=== PATIENT | female | born 1990 | race Caucasian/White ===

== ENCOUNTER 2016-08-09 18:07 | Emergency (ER) | payer OTHER ==
--- NOTE | 2016-08-09 23:36 | ED CLINICAL REPORT ---
Clinical Report - Physicians/Mid Levels [facility] [address] [place] [address] 08/09/2016 18:08 Patient: JENI BENITEZ Time Seen: 19:03; initial patient contact, initial documentation, patient care assumed. Arrived- By private vehicle. Historian- patient. HISTORY OF PRESENT ILLNESS Chief Complaint: PELVIC PAIN and VAGINAL BLEEDING. This started about 3 days ago and still present. The symptoms are described as moderate. Modifying factors. Not worsened by anything. Not relieved by anything. The patient has had mild, crampy abdominal pain and pelvic pain. She has had abnormal bleeding described as spotting blood seen on tp when wiping with urination. No low back pain, flank pain, vaginal discharge, pain with urination or urinary frequency. No urgency of urination or hematuria. Sexually active- unprotected sex and heterosexual. No exposure to sexually transmitted disease. Currently . In 1st trimester. confirmed with urine test. Has had care by private doctor. G 3. P 2. Similar symptoms previously: Frequently, as bad. Recent medical care: The patient was seen recently by a health care provider. ( txed recently for uti, ?abx, no s/s, no f/u). REVIEW OF SYSTEMS The patient has had nausea. She has had mild vomiting (x3 today). The vomiting has occurred several times. No bilious emesis, feculent emesis, blood-tinged emesis, coffee-grounds emesis or frankly bloody emesis. No unusually dark emesis. No diarrhea, black stools or fever. All systems otherwise negative, except as recorded above. PAST HISTORY See nurses notes. ( PROBLEMS: UTI - Urinary Tract Infection. Sick Contact. Ectopic . Abdominal Pain. Vomiting. Gastroesophageal Reflux Disease. Lumbar Strain. Costochondritis. Asthma. Pelvic Pain. Cystitis. Depression. Anxiety Reaction. Scoliosis. --18:37 Petar Valderrama, R.N. ADDITIONAL SURGERIES: Dilatation & Curettage. L fallopian tube removed. Tonsillectomy. --18:37 Petar Valderrama, R.N.). SOCIAL HISTORY Never smoker. No alcohol use or drug use. No recent travel. Is a local resident. FAMILY HISTORY Negative. ADDITIONAL NOTES The nursing notes have been reviewed with agreement regarding the chief complaint, HPI, ROS, PMH and patient medications and allergies. PHYSICAL EXAM Vital Signs: 08/09/2016 18:29 BP: 117/66. HR: 95. RR: 16. O2 saturation: 98%. Temp: 99.8 F. Pain level now: 8/10. Have been reviewed as normal and appear to be correct. Appearance: Alert. Oriented X3. No acute distress. HEENT: Normal external inspection. ENT: Pharynx normal. Neck: Neck supple. CVS: Heart sounds normal. Respiratory: No respiratory distress. Breath sounds normal. Chest nontender. Abdomen: Soft and nontender. Bowel sounds normal. No organomegaly. No mass. Back: Normal external inspection. : External inspection normal. Speculum exam abnormal. A moderate amount of thick and yellow vaginal discharge present. No vaginal bleeding. Cervical os closed. No tissue present. No cervicitis. No herpes-like lesions. Bimanual exam normal. Skin: Skin warm and dry. Normal skin color. No rash. Normal skin turgor. Extremities: Extremities nontender. No lower extremity edema. Neuro: Oriented X 3. Mood/affect normal. No motor deficit. No sensory deficit. LABS, X-RAYS, AND EKG Pelvic Sonogram: An intrauterine is present. No acute disease. no ectopic verbal report by [employer] Interpretation time: 2320. Laboratory Tests: UA-Culture if indicated: (TRANG: 08/09/2016 18:45) ( MsgRcvd 08/09/2016 19:21) Final results Test Result Flag Units (Reference) URINE COLOR YELLOW URINE APPEARANCE CLEAR URINE GLUCOSE NEGATIVE (NEGATIVE) URINE BILIRUBIN NEGATIVE (NEGATIVE) URINE KETONE NEGATIVE (NEGATIVE) URINE SPECIFIC GRAVITY <= 1.005 L (1.010-1.030) URINE PH 6.0 (5.0-8.0) URINE PROTEIN NEGATIVE (NEGATIVE) URINE UROBILINOGEN 0.2 EU/dL (0.2-1.0) URINE NITRITE NEGATIVE (NEGATIVE) URINE BLOOD NEGATIVE (NEGATIVE) URINE LEUK ESTERASE NEGATIVE (NEGATIVE) URINE RBC NONE SEEN rbc/hpf (0-1) URINE WBC 0-1 wbc/hpf (0-1) URINE EPITHELIAL CELLS NONE SEEN EPI/hpf (0-5) URINE BACTERIA NONE SEEN (NONE SEEN) URINE COMMENT CULT NOT INDICATED URINE CULTURES ARE SET-UP BASED ON THE FOLLOWING CRITERIA:POSITIVE NITRITEPOSITIVE LEUKOCYTE ESTERASEGREATER THAN 10 WHITE BLOOD CELLSMODERATE (2+) OR GREATER BACTERIA Urine: (TRANG: 08/09/2016 18:45) ( MsgRcvd 08/09/2016 19:16) Final results Test Result Flag Units (Reference) URINE POSITIVE CBC w Diff: (TRANG: 08/09/2016 20:15) ( MsgRcvd 08/09/2016 20:28) Final results Test Result Flag Units (Reference) WHITE BLOOD COUNT 9.0 K/uL (4.5-11.5) RED BLOOD COUNT 4.77 M/uL (4.00-5.20) HEMOGLOBIN 13.3 gm/dL (12.0-16.0) HEMATOCRIT 41.1 % (36.0-46.0) MEAN CELL VOLUME 86 fL (80-100) MEAN CORPUSCULAR HGB 28 pg (26-34) MEAN CORPUSCULAR HGB CONC 32 g/dL (31-37) RED CELL DISTRIBUTION WIDTH 14.0 % (11.6-14.8) PLATELET COUNT 299 K/uL (150-400) NEUTROPHIL % 63.2 % (50-75) LYMPH % 29.2 % (25-40) MONO % 6.2 % (3-14) EOSINOPHIL % 1.1 % (0-4) BASOPHIL % 0.3 % (0-2) BMP: (TRANG: 08/09/2016 20:15) ( MsgRcvd 08/09/2016 22:05) IP Test Result Flag Units (Reference) GLUCOSE 88 mg/dL (70-110) BUN 10 mg/dL (7-18) CREATININE 0.9 mg/dL (0.6-1.3) Estimated GFR >60 mL/min Estimated GFR- >60 mL/min Note: Persistent reduction over 3 months in eGFR<60 mL/min/1.73 m2 defines CKD. Patients with eGFR values>=60 mL/min/1.73 m2 may also have CKD if evidence ofpersistent proteinuria. Additional information may be foundat www.kidney.org. SODIUM 139 mmol/L (136-145) POTASSIUM 3.5 mmol/L (3.5-5.1) CHLORIDE 106 mmol/L (98-107) CARBON DIOXIDE 24 mmol/L (21-32) CALCIUM 8.9 mg/dL (8.5-10.1) Wet Prep: (TRANG: 08/09/2016 21:07) ( [facility] 08/09/2016 21:31) Final results SPECIMEN DESCRIPTION: CERVIX Test Result Flag Units (Reference) WET MOUNT CLUE CELLS:: RARE * EPITHELIAL CELLS: MODERATE -- SOURCE?: CERVIX WHITE BLOOD CELLS: MANY TRICHOMONAS:: NONE -- YEAST:: NONE Type & Rh: (TRANG: 08/09/2016 20:15) ( [facility] 08/09/2016 21:15) Final results Test Result Flag Units (Reference) PATIENT BLOOD TYPE O Positive . PROGRESS AND PROCEDURES Course of Care: 21:26 08/09/16. pt has familia for frequent er visits, #21, and recommends educating pt about proper utilization of er Teaching was done for this, and spoke to pt about her er visits pt did not tell me of er vists, and pt was at [facility] on 08/05 and 08/03, pt denies that they did any us, said they only did blood work [facility] called to obtain us report, us done on 08/03 but could not r/o ectopic due to early . Patient counseled in person regarding the patient's stable condition, test results and diagnosis. 23:36. Differential Diagnosis: I considered acute appendicitis, mesenteric lymphadenitis, urinary tract infection, ovarian cyst, ovarian torsion, ectopic , pelvic abscess and viral syndrome as a possible cause of abdominal pain in this patient. This is a partial list of diagnoses considered. Above considerations are based on history, physical exam, laboratory data and other information. Differential diagnosis was discussed with patient. Disposition: Discharged home in good and unchanged condition (23:36). Condition: good and stable. CLINICAL IMPRESSION Acute mild bacterial vaginitis INSTRUCTIONS Warnings: GENERAL WARNINGS: Return or contact your physician immediately if your condition worsens or changes unexpectedly, if not improving as expected, or if other problems arise. Specifically return if problem worsens. Prescription Medications: Flagyl 500 mg: Take 1 tablet orally every 12 hours for 7 days. No refill. Substitution is permissible. Follow-up: Follow up with your doctor in about three days even if well. Call for an appointment. Summary of care provided to patient. Understanding of the discharge instructions verbalized by patient. (Electronically signed by Mili Ward A.R.N.P. 08/10/2016 0:12)
--- NOTE | 2016-08-09 23:36 | ED NURSING NOTES ---
Clinical Report - Nurses [facility] [place] [address] 08/09/2016 18:08 [id number] Triage time 18:29 Aug 09 2016. Acuity: LEVEL 3. Chief Complaint: ABDOMINAL PAIN and CRAMPS and SPOTTING. Alert. MARILEE COMA SCORE: Marilee Coma Scale: 15- eyes open spontaneously (4); best verbal response- oriented x 4 (5); best motor response- obeys commands (6). --18:41 Petar Valderrama R.N. 18:29 08/09/16. BP: 117/66. HR: 95. RR: 16. O2 saturation: 98% on room air. Temp: 99.8 F (oral). Pain level now: 03/12. --18:41 Petar Valderrama R.N. Weight: 55.3 kg stated. Height/Length: 63 inches Per Patient. BMI: 21.6. --18:33 Petar Valderrama R.N. Medications Tylenol Oral, as needed. --18:33 Petar Valderrama R.N. Zofran Oral, as needed. --18:33 Petar Valderrama R.N. Vitamins Oral 1 pill, daily. --18:33 Petar Valderrama R.N. Allergies None. --18:33 Petar Valderrama R.N. History Arrived by private vehicle. Historian: patient. Accompanied by family. 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 ( Vaginal "spotting." Pt states that she is 5-6 weeks (confirmed by her milk condenser in [place]).). Onset. (cramping for the last 2 days, spotting today ~ 3 hours ago.). She has had vomiting (3 x today). Last oral intake by patient was (about 4 hours ago, but vomited). 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 Took Tylenol. Symptoms did not improve after treatment. PAST MEDICAL HX: Immunizations: status is unknown and seasonal influenza: first dose. Last normal menstrual period- Jul 03, 2016. She has had care by an surface boss. No known risks or problems associated with current . OB history: G 3; P 2. SOCIAL HX: Never smoker. No alcohol use or drug use. No infectious disease exposure. ABUSE ASSESSMENT: No report of abuse. FALL RISK ASSESSMENT: Fall risk assessment completed. No fall risk identified. NUTRITIONAL RISK ASSESSMENT: The nutritional risk assessment revealed no deficiencies. FUNCTIONAL ASSESSMENT: Functional assessment: no impairments noted. LEARNING NEEDS ASSESSMENT: The learning needs assessment revealed no barriers. SKIN INTEGRITY ASSESSMENT: Skin integrity risk assessment completed. No skin integrity risk identified. --18:41 Petar Valderrama R.N. PROBLEMS: UTI - Urinary Tract Infection. Sick Contact. Ectopic . Abdominal Pain. Vomiting. Gastroesophageal Reflux Disease. Lumbar Strain. Costochondritis. Asthma. Pelvic Pain. Cystitis. Depression. Anxiety Reaction. Scoliosis. --18:37 Petar Valderrama R.N. ADDITIONAL SURGERIES: Dilatation & Curettage. L fallopian tube removed. Tonsillectomy. --18:37 Petar Valderrama R.N. Interventions ID band on patient. To treatment room. --18:41 Petar Valderrama R.N. PHYSICAL ASSESSMENT Ambulatory to room. GENERAL / NEURO / PSYCH: Alert. Oriented X 4. Appears in pain. HEENT: Mucous membranes are pink. RESPIRATORY: Respirations not labored. CVS: Normal heart rate and rhythm. GI / : Abdominal tenderness in the suprapubic area and lower abdomen. EXTREMITIES: No lower extremity edema. SKIN: Skin is warm and dry. --18:42 Petar Valderrama R.N. NURSING PROGRESS NOTES Patient gowned. Reassurance given. Patient identifiers checked. Call light placed in reach. Side rails up x 1. Bed placed in lowest position. Brakes of bed on. Patient ready for evaluation- chart flagged and ED physician notified. --18:42 Petar Valderrama R.N. 20:47 08/09/16. PELVIC EXAM: Pelvic exam performed by ED physician. Assisted by one nurse. Preparation: pelvic tray; patient placed in lithotomy position. Procedure: speculum and bimanual exam. Specimens collected and sent to lab: GC, chlamydia, wet prep and DNA probe. Status post-procedure: she was stable. Total time of assist / procedure: 15 minutes. --21:05 Carlos, Jacquie, R.N. 21:38 08/09/16. ( Pt resting quietly, family at bedside, waiting for US). --21:38 Jacquie Gonzalez R.N. 22:32 08/09/2016 Tylenol (Acetaminophen) PO Tablets 1000 mg given. Allergies verified and confirmed 5 rights. --22:32 Stalin Funk R.N. DISPOSITION / DISCHARGE Condition at departure: improved. The goals identified in the patient's plan of care were met. No learning barriers present. Discharge instructions provided and reviewed with the patient. Reviewed medication(s) side effects, precautions, dosing and course information. Prescription(s) given to the patient. Patient verbalized understanding. Written instructions provided in [employer]. The patient was discharged home and accompanied by family. She left the Emergency Department ambulatory and via private vehicle. Spouse driving. FALL RISK ASSESSMENT: Fall risk assessment completed. No fall risk identified. --23:50 Stalin Funk R.N. 23:49 08/09/16. BP: 119/52. HR: 73. RR: 16. O2 saturation: 100%. Temp: 98.2 F (oral). Pain level now: 0/10. --23:50 Stalin Funk R.N. Departure time: 2350 PM. --23:50 Stalin Funk R.N. Locked/Released at 08/09/2016 23:51 by Stalin Funk R.N.
--- NOTE | 2016-08-09 23:36 | ED NURSING NOTES ---
Clinical Report - Nurses [facility] [place] [address] 08/09/2016 18:08 [id number] TRI[facility] Triage time 18:29 Aug 09 2016. Acuity: LEVEL 3. Chief Complaint: ABDOMINAL PAIN and CRAMPS and SPOTTING. Alert. MARILEE COMA SCORE: Marilee Coma Scale: 15- eyes open spontaneously (4); best verbal response- oriented x 4 (5); best motor response- obeys commands (6). --18:41 Petar Valderrama R.N. 18:29 08/09/16. BP: 117/66. HR: 95. RR: 16. O2 saturation: 98% on room air. Temp: 99.8 F (oral). Pain level now: 03/12. --18:41 Petar Valderrama R.N. Weight: 55.3 kg stated. Height/Length: 63 inches Per Patient. BMI: 21.6. --18:33 Petar Valderrama R.N. Medications Tylenol Oral, as needed. --18:33 Petar Valderrama R.N. Zofran Oral, as needed. --18:33 Petar Valderrama R.N. Vitamins Oral 1 pill, daily. --18:33 Petar Valderrama R.N. Allergies None. --18:33 Petar Valderrama R.N. History Arrived by private vehicle. Historian: patient. Accompanied by family. 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 ( Vaginal "spotting." Pt states that she is 5-6 weeks (confirmed by her peanut grader in [place]).). Onset. (cramping for the last 2 days, spotting today ~ 3 hours ago.). She has had vomiting (3 x today). Last oral intake by patient was (about 4 hours ago, but vomited). 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 Took Tylenol. Symptoms did not improve after treatment. PAST MEDICAL HX: Immunizations: status is unknown and seasonal influenza: first dose. Last normal menstrual period- Jul 03, 2016. She has had care by an security alarm technician. No known risks or problems associated with current . OB history: G 3; P 2. SOCIAL HX: Never smoker. No alcohol use or drug use. No infectious disease exposure. ABUSE ASSESSMENT: No report of abuse. FALL RISK ASSESSMENT: Fall risk assessment completed. No fall risk identified. NUTRITIONAL RISK ASSESSMENT: The nutritional risk assessment revealed no deficiencies. FUNCTIONAL ASSESSMENT: Functional assessment: no impairments noted. LEARNING NEEDS ASSESSMENT: The learning needs assessment revealed no barriers. SKIN INTEGRITY ASSESSMENT: Skin integrity risk assessment completed. No skin integrity risk identified. --18:41 Petar Valderrama R.N. PROBLEMS: UTI - Urinary Tract Infection. Sick Contact. Ectopic . Abdominal Pain. Vomiting. Gastroesophageal Reflux Disease. Lumbar Strain. Costochondritis. Asthma. Pelvic Pain. Cystitis. Depression. Anxiety Reaction. Scoliosis. --18:37 Petar Valderrama R.N. ADDITIONAL SURGERIES: Dilatation & Curettage. L fallopian tube removed. Tonsillectomy. --18:37 Petar Valderrama R.N. Interventions ID band on patient. To treatment room. --18:41 Petar Valderrama R.N. PHYSICAL ASSESSMENT Ambulatory to room. GENERAL / NEURO / PSYCH: Alert. Oriented X 4. Appears in pain. HEENT: Mucous membranes are pink. RESPIRATORY: Respirations not labored. CVS: Normal heart rate and rhythm. GI / : Abdominal tenderness in the suprapubic area and lower abdomen. EXTREMITIES: No lower extremity edema. SKIN: Skin is warm and dry. --18:42 Petar Valderrama R.N. NURSING PROGRESS NOTES Patient gowned. Reassurance given. Patient identifiers checked. Call light placed in reach. Side rails up x 1. Bed placed in lowest position. Brakes of bed on. Patient ready for evaluation- chart flagged and ED physician notified. --18:42 Petar Valderrama R.N. 20:47 08/09/16. PELVIC EXAM: Pelvic exam performed by ED physician. Assisted by one nurse. Preparation: pelvic tray; patient placed in lithotomy position. Procedure: speculum and bimanual exam. Specimens collected and sent to lab: GC, chlamydia, wet prep and DNA probe. Status post-procedure: she was stable. Total time of assist / procedure: 15 minutes. --21:05 Carlos, Jacquie, R.N. 21:38 08/09/16. ( Pt resting quietly, family at bedside, waiting for US). --21:38 Jacquie Gonzalez R.N. 22:32 08/09/2016 Tylenol (Acetaminophen) PO Tablets 1000 mg given. Allergies verified and confirmed 5 rights. --22:32 Stalin Funk R.N. DISPOSITION / DISCHARGE Condition at departure: improved. The goals identified in the patient's plan of care were met. No learning barriers present. Discharge instructions provided and reviewed with the patient. Reviewed medication(s) side effects, precautions, dosing and course information. Prescription(s) given to the patient. Patient verbalized understanding. Written instructions provided in [employer]. The patient was discharged home and accompanied by family. She left the Emergency Department ambulatory and via private vehicle. Spouse driving. FALL RISK ASSESSMENT: Fall risk assessment completed. No fall risk identified. --23:50 Stalin Funk R.N. 23:49 08/09/16. BP: 119/52. HR: 73. RR: 16. O2 saturation: 100%. Temp: 98.2 F (oral). Pain level now: 0/10. --23:50 Stalin Funk R.N. Departure time: 2350 PM. --23:50 Stalin Funk R.N. Locked/Released at 08/09/2016 23:51 by Stalin Funk R.N.
--- NOTE | 2016-08-09 23:37 | ED ORDER SUMMARY ---
..... Patient: JENI BENITEZ OrderSheet [facility] VisitID: [id number] [place] [address] 26y, F Registration Date/Time: 08/09/2016 ORDER SHEET Weight: 55.3 kg (stated) Allergies: None GENERAL ORDERS: UA-Culture if indicated Urgent (18:47 08/09/2016 omanelli R.N. verbal order read back to Devi SEVERINO) (Ack 18:50 TBergley) (19:02 JRomanelli R.N.) Urine Urgent (18:47 08/09/2016 JRomanelli R.N. verbal order read back to Devi SEVERINO) (Ack 18:50 TBergley) (19:02 JRomanelli R.N.) CBC w Diff Urgent (19:56 08/09/2016 HBivens A.R.N.P.) (Ack 19:58 TBergley) (21:08 CHagerty ER Energy Conservation Technician) BMP Urgent (19:56 08/09/2016 HBivens A.R.N.P.) (Ack 19:58 TBergley) (21:08 CHagerty ER Energy Conservation Technician) Serum Quantitative Urgent (19:56 08/09/2016 HBivens A.R.N.P.) (Ack 19:58 TBergley) (21:08 CHagerty ER Energy Conservation Technician) Type & Rh Urgent (19:56 08/09/2016 HBivens A.R.N.P.) (Ack 19:58 TBergley) (21:08 CHagerty ER Energy Conservation Technician) Pelvic Exam Setup (19:56 08/09/2016 HBivens A.R.N.P.) (Ack 19:58 TBergley) (21:05 DDean R.N.) GC/Chlamydia (Cervix) (cervix) Urgent (21:06 08/09/2016 HBivens A.R.N.P.) (Ack 21:15 TBergley) (21:15 DDean R.N.) Wet Prep (Cervix) (cervix) Urgent (21:06 08/09/2016 HBivens A.R.N.P.) (Ack 21:15 TBergley) (21:15 Christopher R.N.) US OB 1st Trimester w Transvag (6 wks) Urgent (21:28 08/09/2016 HBivens A.R.N.P.) (Ack 21:30 TBergley) (23:22 Maude ER Energy Conservation Technician) MEDICATION ORDERS: Tylenol PO 1,000 mg (NOW) (22:29 08/09/2016 Elieser LemusN. verbal order read back to Ranjeets A.R.N.P.) (22:33 Elieser Gore) IV FLUIDS: ORDER SHEET NOTES: [Electronically signed by Stalin Funk R.N. (23:51 08/09/2016)] [Electronically signed by Mili WardREveretteN.PEverette (00:12 08/10/2016)] [Electronically locked/signed by Stalin Funk R.N. (23:51 08/09/2016)]
--- NOTE | 2016-08-09 23:37 | ED ORDER SUMMARY ---
..... Patient: JENI BENITEZ OrderSheet [facility] VisitID: [id number] [place] [address] 26y, F Registration Date/Time: 08/09/2016 ORDER SHEET Weight: 55.3 kg (stated) Allergies: None GENERAL ORDERS: UA-Culture if indicated Urgent (18:47 08/09/2016 omanelli R.N. verbal order read back to Devi SEVERINO) (Ack 18:50 TBergley) (19:02 JRomanelli R.N.) Urine Urgent (18:47 08/09/2016 JRomanelli R.N. verbal order read back to Devi SEVERINO) (Ack 18:50 TBergley) (19:02 JRomanelli R.N.) CBC w Diff Urgent (19:56 08/09/2016 HBivens A.R.N.P.) (Ack 19:58 TBergley) (21:08 CHagerty ER Telegraph Operator) BMP Urgent (19:56 08/09/2016 HBivens A.R.N.P.) (Ack 19:58 TBergley) (21:08 CHagerty ER Telegraph Operator) Serum Quantitative Urgent (19:56 08/09/2016 HBivens A.R.N.P.) (Ack 19:58 TBergley) (21:08 CHagerty ER Telegraph Operator) Type & Rh Urgent (19:56 08/09/2016 HBivens A.R.N.P.) (Ack 19:58 TBergley) (21:08 CHagerty ER Telegraph Operator) Pelvic Exam Setup (19:56 08/09/2016 HBivens A.R.N.P.) (Ack 19:58 TBergley) (21:05 DDean R.N.) GC/Chlamydia (Cervix) (cervix) Urgent (21:06 08/09/2016 HBivens A.R.N.P.) (Ack 21:15 TBergley) (21:15 DDean R.N.) Wet Prep (Cervix) (cervix) Urgent (21:06 08/09/2016 HBivens A.R.N.P.) (Ack 21:15 TBergley) (21:15 Christopher R.N.) US OB 1st Trimester w Transvag (6 wks) Urgent (21:28 08/09/2016 HBivens A.R.N.P.) (Ack 21:30 TBergley) (23:22 Maude ER Telegraph Operator) MEDICATION ORDERS: Tylenol PO 1,000 mg (NOW) (22:29 08/09/2016 Elieser LemusN. verbal order read back to Ranjeets A.R.N.P.) (22:33 Elieser Gore) IV FLUIDS: ORDER SHEET NOTES: [Electronically signed by Stalin Funk R.N. (23:51 08/09/2016)] [Electronically signed by Mili WardREveretteN.PEverette (00:12 08/10/2016)] [Electronically locked/signed by Stalin Funk R.N. (23:51 08/09/2016)]
--- NOTE | 2016-08-10 00:13 | ED MED RECONCILIATION SUMMARY ---
Patient: JENI BENITEZ Medication Reconciliation Report [facility] VisitID: [id number] [address] [place] [address] 26y, F Registration Date/Time: 08/09/2016 Weight: 55.3 kg Height/Length: 63 in. BMI: 21.6 ALLERGIES: None The patient's Home Medications are listed below: THE FOLLOWING MEDICATIONS NEED TO BE RECONCILED: Vitamins Oral 1 pill, daily Tylenol Oral Zofran Oral The source(s) of the original Home Medication information: Not obtained. The following Medications were given to the patient in the Emergency Department: Tylenol [PO] PO 1000 mg, administered: 08/09/2016 10:32:00 PM The following Medications were prescribed to the patient: Flagyl 500 mg: Take 1 tablet orally every 12 hours for 7 days. No refill. Substitution is permissible. -- Mili Ward A.R.N.P.
--- NOTE | 2016-08-10 00:13 | ED MAR SUMMARY ---
..... Medication Administration Record [facility] [address] [place] [address] Patient: JENI BENITEZ Visit ID: [id number] 26y, F Weight: 55.3 kg Height/Length: 63 in BMI: 21.6 ALLERGIES: None Given 22:32 08/09/2016 Stalin Funk RBrandon Medication Administered: TYLENOL [PO] (ACETAMINOPHEN), Dose: 1000 mg Tablets PO. Medication Ordered: Tylenol PO 1,000 mg (NOW).
--- NOTE | 2016-08-10 00:13 | ED DISCHARGE INSTRUCTIONS ---
Patient: JENI BENITEZ General Instructions [facility] VisitID: [id number] [place] [address] 26y, F Registration Date/Time: 08/09/2016 Acute mild bacterial vaginitis INSTRUCTIONS Warnings: GENERAL WARNINGS: Return or contact your physician immediately if your condition worsens or changes unexpectedly, if not improving as expected, or if other problems arise. Specifically return if problem worsens. Prescription Medications: Flagyl 500 mg: Take 1 tablet orally every 12 hours for 7 days. No refill. Substitution is permissible. Follow-up: Follow up with your doctor in about three days even if well. Call for an appointment. Summary of care provided to patient. Understanding of the discharge instructions verbalized by patient. ADDITIONAL INFORMATION Bacterial Vaginosis You have a bacterial infection of the vagina called bacterial vaginosis (BV). It may also be called gardnerella or non-specific vaginitis. BV occurs when the "bad" bacteria outnumber the "good" bacteria that are normally present in the vagina. Symptoms include foul-smelling vaginal discharge (most noticeable after vaginal intercourse). There may also be burning with urination. The burning is caused as the urine passes over the inflamed outer vaginal area. The cause of bacterial vaginosis is not certain. However, your risk is higher if you recently began a new sexual relationship, or have had many sex partners in the past. Your risk is also higher if you douche often. While bacterial vaginosis most often occurs only in sexually active women, this is not a true sexually transmitted disease. You did not get this from your partner. You cannot give it to your partner. The infection may be related to temporary changes in the pH of vaginal fluids after being exposed to semen. Home Care: Keep the genital area clean and free of discharge. Do this by wearing an absorbent sanitary pad and changing it often. Shower daily. When you shower, clean the outer vaginal area with plain soap and water. Do not douche during treatment unless advised to do so by your doctor. Routine douching after treatment is no longer recommended to clean the vagina. It raises your risk of vaginal infection and pelvic inflammatory disease. Avoid having sex until you have finished all antibiotic medicine and all symptoms have gone away. Wear cotton underwear or cotton-lined panty hose. Dont wear pants that are too tight. Limiting the number of sex partners you have lowers your risk of this and other vaginal infections, STDs, and HIV. Take all medicine as directed until it is gone, even if you are feeling better. If you dont do this, symptoms might return. Follow Up with your doctor if symptoms dont go away after the medicine is finished. Get Prompt Medical Attention if any of the following occur: Fever of 100.4F (38C) or higher, or as directed by your healthcare provider Lower abdominal pain Rash or joint pain Painful sores around the outer vaginal area or on your partners penis Metronidazole Oral tablet What is this medicine? METRONIDAZOLE (me troe NI da zole) is an antiinfective. It is used to treat certain kinds of bacterial and protozoal infections. It will not work for colds, flu, or other viral infections. How should I use this medicine? Take this medicine by mouth with a full glass of water. Follow the directions on the prescription label. Take your medicine at regular intervals. Do not take your medicine more often than directed. Take all of your medicine as directed even if you think you are better. Do not skip doses or stop your medicine early. Talk to your campus chaplain regarding the use of this medicine in children. Special care may be needed. What side effects may I notice from receiving this medicine? Side effects that you should report to your doctor or health home visit field care manager as soon as possible: allergic reactions like skin rash or hives, swelling of the face, lips, or tongue confusion, clumsiness difficulty speaking discolored or sore mouth dizziness fever, infection numbness, tingling, pain or weakness in the hands or feet trouble passing urine or change in the amount of urine redness, blistering, peeling or loosening of the skin, including inside the mouth seizures unusually weak or tired vaginal irritation, dryness, or discharge Side effects that usually do not require medical attention (report to your doctor or health home visit field care manager if they continue or are bothersome): diarrhea headache irritability metallic taste nausea stomach pain or cramps trouble sleeping What may interact with this medicine? Do not take this medicine with any of the following medications: alcohol or any product that contains alcohol amprenavir oral solution cisapride disulfiram dofetilide dronedarone paclitaxel injection pimozide ritonavir oral solution sertraline oral solution sulfamethoxazole-trimethoprim injection thioridazine ziprasidone This medicine may also interact with the following medications: cimetidine lithium other medicines that prolong the QT interval (cause an abnormal heart rhythm) phenobarbital phenytoin warfarin What if I miss a dose? If you miss a dose, take it as soon as you can. If it is almost time for your next dose, take only that dose. Do not take double or extra doses. Where should I keep my medicine? Keep out of the reach of children. Store at room temperature below 25 degrees C (77 degrees F). Protect from light. Keep container tightly closed. Throw away any unused medicine after the expiration date. What should I tell my health care provider before I take this medicine? They need to know if you have any of these conditions: anemia or other blood disorders disease of the nervous system fungal or yeast infection if you drink alcohol containing drinks liver disease seizures an unusual or allergic reaction to metronidazole, or other medicines, foods, dyes, or preservatives or trying to get breast-feeding What should I watch for while using this medicine? Tell your doctor or health home visit field care manager if your symptoms do not improve or if they get worse. You may get drowsy or dizzy. Do not drive, use machinery, or do anything that needs mental alertness until you know how this medicine affects you. Do not stand or sit up quickly, especially if you are an older patient. This reduces the risk of dizzy or fainting spells. Avoid alcoholic drinks while you are taking this medicine and for three days afterward. Alcohol may make you feel dizzy, sick, or flushed. If you are being treated for a sexually transmitted disease, avoid sexual contact until you have finished your treatment. Your sexual partner may also need treatment. You have been given the following additional information: Vaginitis, Bacterial Metronidazole Oral tablet (Electronically signed by Mili Ward A.R.N.P. 08/10/2016 0:12)
--- NOTE | 2016-08-10 00:13 | ED MED RECONCILIATION SUMMARY ---
Patient: JENI BENITEZ Medication Reconciliation Report [facility] VisitID: [id number] [address] [place] [address] 26y, F Registration Date/Time: 08/09/2016 Weight: 55.3 kg Height/Length: 63 in. BMI: 21.6 ALLERGIES: None The patient's Home Medications are listed below: THE FOLLOWING MEDICATIONS NEED TO BE RECONCILED: Vitamins Oral 1 pill, daily Tylenol Oral Zofran Oral The source(s) of the original Home Medication information: Not obtained. The following Medications were given to the patient in the Emergency Department: Tylenol [PO] PO 1000 mg, administered: 08/09/2016 10:32:00 PM The following Medications were prescribed to the patient: Flagyl 500 mg: Take 1 tablet orally every 12 hours for 7 days. No refill. Substitution is permissible. -- Mili Ward A.R.N.P.
--- NOTE | 2016-08-10 00:13 | ED MAR SUMMARY ---
..... Medication Administration Record [facility] [address] [place] [address] Patient: JENI BENITEZ Visit ID: [id number] 26y, F Weight: 55.3 kg Height/Length: 63 in BMI: 21.6 ALLERGIES: None Given 22:32 08/09/2016 Stalin Funk RBrandon Medication Administered: TYLENOL [PO] (ACETAMINOPHEN), Dose: 1000 mg Tablets PO. Medication Ordered: Tylenol PO 1,000 mg (NOW).
--- NOTE | 2016-08-10 00:25 | DIAGNOSTIC IMAGING REPORT ---
PROCEDURE: US OB 1ST TRIMESTER W/TRANSVAG INDICATION: POSSIBLE ECTOPIC TECHNIQUE: Vasquez scale, color, and spectral Doppler transabdominal and endovaginal sonographic images of the first trimester gravid uterus were obtained. COMPARISON: Pelvic ultrasound 07/28/2016 FINDINGS: TRANSABDOMINAL SCANS: Retroflexed uterus with a small cystic structure in the fundal portion of the endometrium. TRANSVAGINAL SCANS: Gestational sac measures 5 mm, 5 weeks 2 days. Yolk sac is present. LULU 04/09/2017. Left ovarian corpus luteum cyst with a small amount of free fluid the cul-de-sac. IMPRESSION: 1. Intrauterine gestational sac without pole, 5 weeks 2-day 2. LULU 04/09/2017 3. Recommend follow-up Beta hCG and ultrasound
== END 2016-08-09 23:50 | disposition home or self-care (01) ==
LOC: ED SRH 18:07
DX: O23.591 Infection of other part of genital tract in pregnancy, first trimester (principal); Z3A.01 Less than 8 weeks gestation of pregnancy
CPT/HCPCS: 90001; 90004; 90047; 90155; 90195; 90197; 91227; 91228; 93070; 95059